=== PATIENT | male | born 1945 | race Caucasian/White ===

== ENCOUNTER 2020-10-20 19:44 | Observation (INO) ==
[2020-10-20 20:49] LABS: Basophils % 0.6 %; Eosinophils # 0.1 K/mcL (0.0-0.6); Eosinophils % 0.7 %; Hematocrit 41.4 % (37.5-50.1); Hemoglobin 13.2 g/dL (12.9-16.9); Immature Granulocytes % 0.3 % (0-4); Lymphocytes # 0.7 K/mcL (0.6-4.6); Lymphocytes % 9.6 %; Mean Corpuscular HGB Conc 31.9 g/dL (31.6-35.5); Mean Corpuscular Hemoglobin 27.4 pg (28.0-33.3); Mean Corpuscular Volume 86.1 fL (83.0-100.0); Mean Platelet Volume 11.8 fL (9.4-12.4); Monocytes # 0.6 K/mcL (0.0-1.3); Monocytes % 8.9 %; Neutrophils # 5.5 K/mcL (1.6-8.9); Platelet Count 137 K/mcL (140-400); Red Blood Count 4.81 M/mcL (4.19-5.50); Segmented Neutrophils % 79.9 %; White Blood Count 6.9 K/mcL (4.3-11.1)
[2020-10-20 21:10] LABS: INR 2.3; Prothrombin Time 25.7 Seconds (9.4-12.1)
[2020-10-20 21:18] LABS: Activated Partial Thrombo Time 36.5 Seconds (26.0-36.0)
[2020-10-20] MEDS ORDERED: Ipratropium/Albuterol Neb 3 ML IH ONE (21:18)
[2020-10-20] MEDS ORDERED: methylPREDNISolone 125 MG/2 ML VIAL IVP ONE (21:18)
[2020-10-20 21:19] LABS: Albumin 4.5 g/dL (3.5-5.7); Albumin/Globulin Ratio 1.4 (1.1-2.2); Bilirubin,Direct 0.1 mg/dL (0.0-0.2); Bilirubin,Indirect 0.6 mg/dL (0.0-1.0); Bilirubin,Total 0.7 mg/dL (0.3-1.0); Calcium 9.9 mg/dL (8.6-10.3); Globulin 3.2 g/dL (2.4-3.5); Potassium 4.9 mEq/L (3.5-5.1); Total Protein 7.7 g/dL (6.4-8.9); Troponin I 0.03 ng/mL (< 0.04)
[2020-10-20] MEDS ORDERED: 0.9 % Sodium Chloride 1,000 ML IVC SCH (23:00)
[2020-10-20 23:24] LABS: Bilirubin,Urine Negative (Negative); Blood,Urine Negative (Negative); Clarity,Urine Clear (Clear); Color,Urine Light-Yellow (Yellow); Glucose,Urine (UA) Normal (Normal); Ketones,Urine Trace mg/dL (Negative); Leukocyte Esterase,Urine Negative (Negative); Nitrite,Urine Negative (Negative); PH,Urine 5.5 pH Units (5.0-8.0); Protein,Urine Trace mg/dL (Neg-Trace); Specific Gravity,Urine 1.016 (1.010-1.025); Urobilinogen,Urine Normal (Normal)
[2020-10-21] MEDS ORDERED: Naloxone 0.4 MG/ML INJ IVP PRN (00:08)
[2020-10-21] MEDS ORDERED: Ondansetron 4 MG/2 ML VIAL IVP PRN (00:08)
[2020-10-21] MEDS ORDERED: 0.9 % Sodium Chloride 1,000 ML IVC SCH (00:15)
[2020-10-21 00:51] LABS: Magnesium 1.8 mg/dL (1.6-2.6); Thyroid Stimulating Hormone 1.304 mcIU/mL (0.340-5.600)
[2020-10-21] MEDS ORDERED: 0.9 % Sodium Chloride 250 ML ONE (01:30)
[2020-10-21] MEDS: Azithromycin 500 MG in 0.9 % Sodium Chloride 250 ML IVPB SCH (01:42)
[2020-10-21] MEDS ORDERED: D5% in Water 1,000 ML IVC PRN (02:26)
[2020-10-21] MEDS ORDERED: *HR* Dextrose 50 % in Water (Vial) 50 ML VIAL IVP PRN (02:26)
[2020-10-21] MEDS ORDERED: Dextrose Gel 15 GM/37.5 ML TUBE PO PRN ×2 (02:26)
[2020-10-21] MEDS ORDERED: Perflutren Lipid Microsphere 1.3 ML in 0.9 % Sodium Chloride 8.7 ML IVP PRN (02:38)
[2020-10-21] MEDS: Levalbuterol 1 PUFF INHALER IH SCH ×6 (03:35→23:47)
[2020-10-21] MEDS: Ipratropium 1 PUFF INHALER IH SCH ×6 (03:35→23:47)
[2020-10-21 03:57] LABS: Hematocrit 38.7 % (37.5-50.1); Hemoglobin 12.3 g/dL (12.9-16.9); Mean Corpuscular HGB Conc 31.8 g/dL (31.6-35.5); Mean Corpuscular Hemoglobin 27.3 pg (28.0-33.3); Mean Platelet Volume 11.4 fL (9.4-12.4); Platelet Count 128 K/mcL (140-400); Red Cell Distribution Width 14.9 % (11.5-14.5); White Blood Count 7.4 K/mcL (4.3-11.1)
[2020-10-21 04:05] LABS: INR 2.4; Prothrombin Time 26.6 Seconds (9.4-12.1)
[2020-10-21 04:16] LABS: Calcium 9.2 mg/dL (8.6-10.3); Potassium 4.2 mEq/L (3.5-5.1)
[2020-10-21] MEDS: Temazepam 15 MG CAPSULE PO SCH ×2 (04:36→23:57)
[2020-10-21] MEDS: MethylPREDNISolone 40 MG/ML VIAL IVP SCH ×4 (06:16→23:57)
[2020-10-21] MEDS: Insulin LISPRO 300 UNITS/3 ML VIAL SUBQ SCH ×3 (06:16→16:20)
[2020-10-21] MEDS ORDERED: Furosemide 40 MG TABLET PO SCH (09:00)
[2020-10-21] MEDS: GuaiFENesin Liq 200 MG/10 ML UDC PO SCH ×2 (09:26→20:12)
[2020-10-21] MEDS: Pregabalin 75 MG CAPSULE PO SCH ×2 (09:27→20:13)
[2020-10-21] MEDS: FLUoxetine 20 MG CAPSULE PO SCH (09:27)
[2020-10-21] MEDS ORDERED: Magnesium Sulfate 1 GM/102 ML PIGGYBACK IVPB ONE (13:19)
[2020-10-21] MEDS ORDERED: lisinopriL 5 MG TABLET PO SCH (13:30)
[2020-10-21] MEDS: Propranolol LA (24 HR) 60 MG CAP.SA.24H PO SCH (14:21)
[2020-10-21] MEDS: Metoprolol XL (24 HR) Succ 50 MG TAB.ER.24H PO SCH (14:21)
[2020-10-21] MEDS: Aspirin 81 MG TAB.CHEW PO SCH (14:22)
[2020-10-21] MEDS ORDERED: *HR* Warfarin 2.5 MG TABLET PO ONE (18:00)
[2020-10-21] MEDS ORDERED: Warfarin perPT PO PRN ×2 (18:00)
[2020-10-21] MEDS: FluocinoNIDE 0.05% CRM 15 GM TUBE TP SCH (20:15)
[2020-10-21] MEDS: Clotrimazole 1% CRM 15 GM TUBE TP SCH (20:16)
[2020-10-21] MEDS ORDERED: Insulin LISPRO 300 UNITS/3 ML VIAL SUBQ SCH (21:00)
[2020-10-21] MEDS ORDERED: Insulin DETEMIR 100 UNIT/ML X5UNITS SUBQ SCH (21:00)
[2020-10-22] MEDS: Azithromycin 500 MG in 0.9 % Sodium Chloride 250 ML IVPB SCH (00:07)
[2020-10-22 01:19] LABS: INR 2.6; Prothrombin Time 29.3 Seconds (9.4-12.1)
[2020-10-22] MEDS: Ipratropium 1 PUFF INHALER IH SCH ×3 (04:12→11:19)
[2020-10-22] MEDS: Levalbuterol 1 PUFF INHALER IH SCH ×3 (04:12→11:18)
[2020-10-22] MEDS: MethylPREDNISolone 40 MG/ML VIAL IVP SCH (05:27)
[2020-10-22] MEDS: GuaiFENesin Liq 200 MG/10 ML UDC PO SCH (08:23)
[2020-10-22] MEDS: Insulin LISPRO 300 UNITS/3 ML VIAL SUBQ SCH ×2 (08:23→11:44)
[2020-10-22] MEDS: FLUoxetine 20 MG CAPSULE PO SCH (08:23)
[2020-10-22] MEDS: Aspirin 81 MG TAB.CHEW PO SCH (08:23)
[2020-10-22] MEDS: Pregabalin 75 MG CAPSULE PO SCH (08:24)
[2020-10-22] MEDS: Clotrimazole 1% CRM 15 GM TUBE TP SCH (08:24)
[2020-10-22] MEDS: Propranolol LA (24 HR) 60 MG CAP.SA.24H PO SCH (08:25)
[2020-10-22] MEDS: Metoprolol XL (24 HR) Succ 50 MG TAB.ER.24H PO SCH (08:25)
[2020-10-22] MEDS: FluocinoNIDE 0.05% CRM 15 GM TUBE TP SCH (08:25)
[2020-10-22 09:48] LABS: Calcium 9.3 mg/dL (8.6-10.3); Potassium 4.8 mEq/L (3.5-5.1)
[2020-10-22 11:32] VITALS: BP 117/67
[2020-10-22] MEDS ORDERED: *HR* Warfarin 2.5 MG TABLET PO ONE (18:00)
[2020-10-22] MEDS ORDERED: MethylPREDNISolone 40 MG/ML VIAL IVP SCH (21:00)
== END 2020-10-22 16:21 | disposition home or self-care (01) ==
LOC: 2ANU 19:44 → EMEROOARM 19:44 → SUATTDRO 23:50 → 2ANU 10-21 00:23
PROVIDERS: ADMIT Student in an Organized Health Care Education/Training Program; ATTEND Internal Medicine

== ENCOUNTER 2021-03-20 15:27 | Inpatient (IN) ==
[2021-03-20] MEDS ORDERED: *HR* Atropine Sulfate 1 MG/10 ML SYRINGE IVP ONE (17:10)
[2021-03-20] MEDS ORDERED: Albuterol 2.5 MG/3 ML NEBULIZER IH PRN (17:38)
[2021-03-20] MEDS ORDERED: Naloxone 0.4 MG/ML INJ IVP PRN (18:06)
[2021-03-20] MEDS ORDERED: Melatonin 3 MG TABLET PO PRN (18:06)
[2021-03-20] MEDS ORDERED: D5% in Water 1,000 ML IVC PRN (18:11)
[2021-03-20] MEDS ORDERED: Dextrose Gel 15 GM/37.5 ML TUBE PO PRN ×2 (18:11)
[2021-03-20] MEDS ORDERED: *HR* Dextrose 50 % in Water (Syg) 50 ML SYRINGE IVP PRN (18:11)
[2021-03-20] MEDS ORDERED: Warfarin perPT PO PRN (18:18)
[2021-03-20 19:14] LABS: INR 3.3; Prothrombin Time 36.2 Seconds (9.4-12.1)
[2021-03-20 19:16] LABS: Basophils # 0.1 K/mcL (0.0-0.2); Basophils % 0.6 %; Eosinophils # 0.1 K/mcL (0.0-0.6); Eosinophils % 1.7 %; Hematocrit 40.3 % (37.5-50.1); Hemoglobin 13.3 g/dL (12.9-16.9); Immature Granulocytes % 0.2 % (0-4); Lymphocytes # 1.4 K/mcL (0.6-4.6); Lymphocytes % 17.8 %; Mean Corpuscular Volume 84.8 fL (83.0-100.0); Mean Platelet Volume 12.1 fL (9.4-12.4); Monocytes # 0.8 K/mcL (0.0-1.3); Monocytes % 9.7 %; Neutrophils # 5.6 K/mcL (1.6-8.9); Platelet Count 126 K/mcL (140-400); Red Blood Count 4.75 M/mcL (4.19-5.50); Red Cell Distribution Width 14.7 % (11.5-14.5)
[2021-03-20 19:29] LABS: Alanine Aminotransferase 21 Units/L (7-52); Albumin 3.8 g/dL (3.5-5.7); Albumin/Globulin Ratio 1.4 (1.1-2.2); Alkaline Phosphatase 78 Units/L (34-104); Aspartate Amino Transferase 21 Units/L (13-39); BUN/Creatinine Ratio 13 (6-26); Bilirubin,Total 0.4 mg/dL (0.3-1.0); Blood Urea Nitrogen 26 mg/dL (8-23); Calcium 9.3 mg/dL (8.6-10.3); Carbon Dioxide 28 mEq/L (23-29); Chloride 104 mEq/L (98-107); Globulin 2.8 g/dL (2.4-3.5); Glucose 179 mg/dL (70-105); Osmolality,Calculated 297 (280-300); Potassium 4.5 mEq/L (3.5-5.1); Sodium 139 mEq/L (136-145); Total Protein 6.6 g/dL (6.4-8.9); Troponin I < 0.03 ng/mL (< 0.04); eGFR For African Americans 40 (> 60); eGFR For Non-African Americans 33 (> 60)
[2021-03-20] MEDS ORDERED: Insulin LISPRO 300 UNITS/3 ML VIAL SUBQ SCH (21:00)
[2021-03-20] MEDS ORDERED: *HR* Warfarin 0.5 MG TABLET PO ONE (21:45)
[2021-03-21 00:45] LABS: Basophils % 0.6 %; Eosinophils # 0.2 K/mcL (0.0-0.6); Eosinophils % 2.4 %; Hemoglobin 12.4 g/dL (12.9-16.9); Immature Granulocytes % 0.3 % (0-4); Lymphocytes # 1.3 K/mcL (0.6-4.6); Lymphocytes % 18.5 %; Mean Corpuscular HGB Conc 32.6 g/dL (31.6-35.5); Mean Corpuscular Hemoglobin 27.6 pg (28.0-33.3); Mean Corpuscular Volume 84.6 fL (83.0-100.0); Mean Platelet Volume 12.4 fL (9.4-12.4); Monocytes # 0.6 K/mcL (0.0-1.3); Monocytes % 9.3 %; Neutrophils # 4.6 K/mcL (1.6-8.9); Platelet Count 126 K/mcL (140-400); Red Blood Count 4.49 M/mcL (4.19-5.50); Red Cell Distribution Width 14.8 % (11.5-14.5); Segmented Neutrophils % 68.9 %; White Blood Count 6.7 K/mcL (4.3-11.1)
[2021-03-21 00:53] LABS: INR 3.3; Prothrombin Time 36.3 Seconds (9.4-12.1)
[2021-03-21 01:06] LABS: Albumin 3.5 g/dL (3.5-5.7); Albumin/Globulin Ratio 1.3 (1.1-2.2); Bilirubin,Total 0.3 mg/dL (0.3-1.0); Calcium 8.9 mg/dL (8.6-10.3); Chol/HDL Ratio 5.6 (0-4.9); Globulin 2.6 g/dL (2.4-3.5); Potassium 4.1 mEq/L (3.5-5.1); Total Protein 6.1 g/dL (6.4-8.9)
[2021-03-21] MEDS ORDERED: Insulin LISPRO 300 UNITS/3 ML VIAL SUBQ SCH ×2 (07:30→21:00)
[2021-03-21] MEDS: Aspirin 81 MG TAB.CHEW PO SCH (09:20)
[2021-03-21] MEDS: Insulin LISPRO 300 UNITS/3 ML VIAL SUBQ SCH ×2 (12:04→16:49)
[2021-03-21] MEDS ORDERED: Warfarin perPT PO PRN (18:00)
[2021-03-21] MEDS ORDERED: Temazepam 15 MG CAPSULE PO SCH (21:00)
[2021-03-21] MEDS ORDERED: hydrOXYzine pamoate 25 MG CAPSULE PO SCH (21:00)
[2021-03-21] MEDS ORDERED: Insulin DETEMIR 100 UNIT/ML X5UNITS SUBQ SCH (21:00)
[2021-03-21] MEDS: Pregabalin 75 MG CAPSULE PO SCH (22:08)
[2021-03-21] MEDS: Albuterol 2.5 MG/3 ML NEBULIZER IH SCH (22:46)
[2021-03-22] MEDS: Albuterol 2.5 MG/3 ML NEBULIZER IH SCH ×3 (04:22→15:53)
[2021-03-22 06:50] LABS: INR 2.3; Prothrombin Time 25.5 Seconds (9.4-12.1)
[2021-03-22] MEDS: Insulin LISPRO 300 UNITS/3 ML VIAL SUBQ SCH ×2 (08:12→12:02)
[2021-03-22] MEDS ORDERED: Metoprolol XL (24 HR) Succ 50 MG TAB.ER.24H PO SCH (09:00)
[2021-03-22] MEDS ORDERED: FLUoxetine 20 MG CAPSULE PO SCH (09:00)
[2021-03-22] MEDS: Pregabalin 75 MG CAPSULE PO SCH (09:10)
[2021-03-22] MEDS: Aspirin 81 MG TAB.CHEW PO SCH (09:10)
[2021-03-22 11:18] VITALS: BP 133/64; PULSE 56; TEMP 97.6; O2SAT 93
[2021-03-22] MEDS ORDERED: Metoprolol XL (24 HR) Succ 25 MG TAB.ER.24H PO SCH (11:45)
[2021-03-22] MEDS ORDERED: *HR* Warfarin 2.5 MG TABLET PO ONE (18:00)
== END 2021-03-22 16:28 | disposition home or self-care (01) | DRG 312 ==
LOC: 3BNU 15:27 → EMEROOARM 15:27 → 3BNU 21:12
PROVIDERS: ADMIT Internal Medicine; ATTEND Internal Medicine